=== PATIENT | male | born 1995 | race American Indian/Alaskan Native ===

== ENCOUNTER 2017-05-07 14:31 | Emergency (ER) | payer SELFPAY ==
[2017-05-07] MEDS ORDERED: Tmp-Smz 800 mg-160 mg DS Tab PO STA (15:34)
--- NOTE | 2017-05-07 15:40 | ED PDOC ---
Arrival/HPI - General Chief Complaint: Abnormal Skin Integrity Time Seen by Provider: 05/07/17 15:20 Historian: Patient - History of Present Illness Narrative History of Present Illness (Text): 05/07/17 15:36 Pt is a 21 yr old male who presents to the ED with left parietal scalp lesion with pain and swelling with subjective fever since Friday. Pt states he iced the area but now the pain is affecting his sleep; associated headache with left eye pain as well. Reports having his scalp shaved on Friday before this occurred. Denies neck pain, n/v/d, change in hearing or direct trauma to head. Time/Duration: < week Symptom Onset: Gradual Symptom Course: Worsening Quality: Aching, Pressure Severity Level: 3 Activities at Onset: Rest, Sleeping Context: Home Past Medical History - Provider Review Nursing Documentation Reviewed: Yes - Travel History Have you recently traveled outside [place] w/in the past 3 mons?: No - Psychiatric Hx Psychophysiologic Disorder: No Hx Substance Use: No Family/Social History - Physician Review Nursing Documentation Reviewed: Yes Family/Social History: Unknown Family HX Smoking Status: Never Smoked Hx Alcohol Use: Yes Frequency of alcohol use: Socially Hx Substance Use: No Allergies/Home Meds Allergies/Adverse Reactions: Allergies No Known Allergies Allergy (Verified 05/07/17 14:56) Review of Systems - Review of Systems Constitutional: Fevers Eyes: Vision Changes (left eye redness), Eye Pain (left). absent: Normal, Photophobia, Other ENT: Normal. absent: Hearing Changes, Tinnitus, TMJ Pain, Voice Changes, Sore Throat, Rhinorrhea, Epistaxis, Sinus Congestion, Other Respiratory: Normal Cardiovascular: Normal Gastrointestinal: Normal Genitourinary Male: Normal Musculoskeletal: Normal Skin: Normal, Skin Lesions (Left parietal ) Neurological: Headache Endocrine: Normal Hemo/Lymphatic: Adenopathy (left ear tenderness) Psychiatric: Normal Physical Exam Vital Signs Reviewed: Yes Vital Signs Temp Pulse Resp BP Pulse Ox 05/07/17 14:57 98.6 F 74 16 119/76 99 Temperature: Afebrile Blood Pressure: Normal Pulse: Regular Respiratory Rate: Normal Appearance: Positive for: Well-Appearing, Non-Toxic, Comfortable Pain Distress: None Mental Status: Positive for: Alert and Oriented X 3 - Systems Exam Head: Present: Atraumatic, Normocephalic, Tenderness (left parietal lesion, swollen and erythematous), Swelling Pupils: Present: PERRL. No: Sluggish, Non-Reactive, Pinpoint, Other Extroacular Muscles: Present: EOMI. No: Gaze Palsy, Entrapment, Other Conjunctiva: Present: Injected (bilat) Ears: Present: Normal Mouth: Present: Moist Mucous Membranes Neck: Present: Normal Range of Motion Respiratory/Chest: Present: Clear to Auscultation, Good Air Exchange. No: Respiratory Distress, Accessory Muscle Use Cardiovascular: Present: Regular Rate and Rhythm, Normal S1, S2. No: Murmurs Abdomen: Present: Normal Bowel Sounds. No: Tenderness, Distention, Peritoneal Signs Back: Present: Normal Inspection Upper Extremity: Present: Normal Inspection. No: Cyanosis, Edema Lower Extremity: Present: Normal Inspection. No: Edema Neurological: Present: GCS=15, CN II-XII Intact, Speech Normal Skin: Present: Warm, Dry, Normal Color. No: Rashes Lymphatic: Present: Other (left preauricular node raised and tende) Psychiatric: Present: Alert, Oriented x 3, Normal Insight, Normal Concentration Medical Decision Making ED Course and Treatment: 05/07/17 15:40 Impression Pt is a 21 yr old male who presents t the Ed with left parietal scalp lesion with pain and swelling with subjective fever since Friday. On exam, raised, red, and swollen lesion along the hairline of the left parietal area, tender to palpation, cant be expressed, left superficial parotid lymph node raised and tender (anterior auricular), EOMI B/L with injected sclera , PERRLA, c-spine ROM full in active and passive, Plan Bactrim DS PO STAT assess and dispo Progress Note Bactrim DS Rx given and advised to return if no change in status; may require incision and drainage at a later date Tylenol 500 mg for pain f/u w PMD in next 24hrs - Medication Orders Current Medication Orders: Discontinued Medications Trimethoprim/Sulfamethoxazole (Bactrim Ds Tab) 1 tab PO STAT STA PRN Reason: Protocol Stop: 05/07/17 15:35 Last Admin: 05/07/17 15:49 Dose: 1 tab Disposition/Present on Arrival - Present on Arrival Any Indicators Present on Arrival: Yes History of DVT/PE: No History of Uncontrolled Diabetes: No Urinary Catheter: No History of Decub. Ulcer: No History Surgical Site Infection Following: None - Disposition Have Diagnosis and Disposition been Completed?: Yes Diagnosis: Folliculitis Disposition: HOME/ ROUTINE Disposition Time: 16:09 Patient Plan: Discharge Condition: STABLE Discharge Instructions (ExitCare): Folliculitis (DC) Additional Instructions: Dear Imelda, Please take all the medication we have prescribed and follow up with your Primary care doctor in the next 2 days. If symptoms worsen, such as change in vision, high fever or any other alarming symptoms, return to the ED. All the bestBRITTANY Prescriptions: Acetaminophen [Tylenol 8 Hour] 650 mg PO Q6 #20 tablet.er Sulfamethoxazole/Trimethoprim [Bactrim DS 800 mg-160 mg] 1 tab PO BID 5 Days # 10 tab Forms: [facility] (Spanish), WORK NOTE
[2017-05-08 11:04] VITALS: BP 119/76; PULSE 74; RESP 16; TEMP 98.6; O2SAT 99
== END 2017-05-07 16:18 | disposition home or self-care (01) ==
LOC: ED 14:31
DX: L73.9 Follicular disorder, unspecified (principal)

== ENCOUNTER 2018-04-20 01:21 | Emergency (ER) | payer OTHER ==
[2018-04-20 01:43] VITALS: TEMP 97.5; O2SAT 100
--- NOTE | 2018-04-20 01:45 | ED PDOC ---
Arrival/HPI - General Chief Complaint: Upper Extremity Problem/Injury Time Seen by Provider: 04/20/18 01:33 Historian: Patient - History of Present Illness Narrative History of Present Illness (Text): 04/20/18 01:44 Imelda Sylvester is a 22 year old male who presents to the Emergency department complaining of left arm pain. Patient states he has been experiencing left arm pain, radiating from elbow to his wrist since yesterday. 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 Patient denies any fever, chills, chest pain, shortness of breath, back pain, neck pain, headache, dizziness, or any other complaints. Symptom Onset: Gradual Symptom Course: Unchanged Activities at Onset: Light Context: Home Past Medical History - Provider Review Nursing Documentation Reviewed: Yes - Infectious Disease Hx of Infectious Diseases: None - Psychiatric Hx Psychophysiologic Disorder: No Hx Substance Use: No Family/Social History - Physician Review Nursing Documentation Reviewed: Yes Family/Social History: Unknown Family HX Smoking Status: Never Smoked Hx Alcohol Use: Yes Hx Substance Use: No Allergies/Home Meds Allergies/Adverse Reactions: Allergies No Known Allergies Allergy (Verified 04/20/18 01:37) Review of Systems - Physician Review All systems were reviewed & negative as marked: Yes - Review of Systems Constitutional: Normal. absent: Fevers Eyes: Normal ENT: Normal Respiratory: Normal. absent: SOB, Cough Cardiovascular: Normal. absent: Chest Pain Gastrointestinal: Normal. absent: Abdominal Pain, Diarrhea, Nausea, Vomiting Genitourinary Male: Normal. absent: Dysuria, Frequency, Hematuria, Urinary Output Changes Musculoskeletal: Arthralgias (+left arm pain). absent: Back Pain, Neck Pain Skin: Normal. absent: Rash Neurological: Normal. absent: Headache, Dizziness Endocrine: Normal Hemo/Lymphatic: Normal Psychiatric: Normal Physical Exam Vital Signs Reviewed: Yes Vital Signs Temp Pulse Resp BP Pulse Ox 04/20/18 01:41 97.5 F L 87 18 114/86 100 Temperature: Afebrile Blood Pressure: Normal Pulse: Regular Respiratory Rate: Normal Appearance: Positive for: Well-Appearing, Non-Toxic, Comfortable Pain Distress: None Mental Status: Positive for: Alert and Oriented X 3 - Systems Exam Head: Present: Atraumatic, Normocephalic Pupils: Present: PERRL Extroacular Muscles: Present: EOMI Conjunctiva: Present: Normal Mouth: Present: Moist Mucous Membranes Neck: Present: Normal Range of Motion Respiratory/Chest: Present: Clear to Auscultation, Good Air Exchange. No: Resp iratory Distress, Accessory Muscle Use Cardiovascular: Present: Regular Rate and Rhythm, Normal S1, S2. No: Murmurs Abdomen: No: Tenderness, Distention, Peritoneal Signs Back: Present: Normal Inspection Upper Extremity: Present: Tenderness (Slight discomfort with left wrist flexion and left elbow flexion). No: Cyanosis, Edema Lower Extremity: Present: Normal Inspection. No: Edema Neurological: Present: GCS=15, CN II-XII Intact, Speech Normal Skin: Present: Warm, Dry, Normal Color. No: Rashes Psychiatric: Present: Alert, Oriented x 3, Normal Insight, Normal Concentration Medical Decision Making ED Course and Treatment: 04/20/18 01:45 Impression: 22 year old male complaining of left arm pain, radiating from elbow to wrist Plan: -- XR Left Elbow -- XR Left Wrist -- Motrin -- Reassess and disposition Progress Notes: 04/20/18 03:22 Reviewed radiology, XR Left Elbow shows no acute processes. XR Left Wrist shows no acute processes. - RAD Interpretation Set Up And Lay Out Inspector: ED Physician - Scribe Statement The provider has reviewed the documentation as recorded by the Scribjuanjose Lopez Provider Scribe Attestation: All medical record entries made by the Scribe were at my direction and personally dictated by me. I have reviewed the chart and agree that the record accurately reflects my personal performance of the history, physical exam, medical decision making, and the department course for this patient. I have also personally directed, reviewed, and agree with the discharge instructions and disposition. Disposition/Present on Arrival - Present on Arrival Any Indicators Present on Arrival: No History of DVT/PE: No History of Uncontrolled Diabetes: No Urinary Catheter: No History of Decub. Ulcer: No History Surgical Site Infection Following: None - Disposition Have Diagnosis and Disposition been Completed?: Yes Diagnosis: Tendinitis of elbow, Tendinitis of wrist Disposition: HOME/ ROUTINE Disposition Time: 03:25 Patient Plan: Discharge Patient Problems: Current Active Problems Problem Status Onset Tendinitis of elbow Acute Tendinitis of wrist Acute Condition: GOOD Discharge Instructions (ExitCare): Tendonitis (DC) Additional Instructions: Take meds as prescribed/rest the affected areas/follow up with your doctor/orthopedist this week Prescriptions: Naproxen [Naprosyn] 500 mg PO BID PRN #14 tab PRN Reason: Pain Referrals: Nilda Gomez MD [Staff Provider] - Follow up with primary Forms: [employer] (Arabic)
[2018-04-20 03:31] VITALS: BP 112/71; PULSE 69; RESP 14
--- NOTE | 2018-04-20 09:46 | RAD ---
Date of service: 04/20/2018 PROCEDURE: Left Wrist Radiographs. HISTORY: Pain COMPARISON: None. FINDINGS: BONES: Normal. No fracture. JOINTS: Normal. No dislocation. SOFT TISSUES: Normal. OTHER FINDINGS: None. IMPRESSION: Normal left wrist radiographs. No evidence of acute displaced fracture nor dislocation.
--- NOTE | 2018-04-20 09:48 | RAD ---
Date of service: 04/20/2018 PROCEDURE: Radiographs of the left elbow. HISTORY: Pain COMPARISON: No prior. FINDINGS: BONES: Normal. No fracture. JOINTS: Normal. No osteoarthritis. SOFT TISSUES: Normal. JOINT EFFUSION: None. OTHER FINDINGS: None IMPRESSION: Unremarkable radiographs of the left elbow. If symptoms persist or occult fracture suspected clinically consider follow-up MRI.
== END 2018-04-20 03:31 | disposition home or self-care (01) ==
LOC: ED 01:21
DX: M77.9 Enthesopathy, unspecified (principal)